=== PATIENT | male | born 1965 | race Caucasian/White ===

== ENCOUNTER 2017-11-30 07:04 | Outpatient (CLI) | payer BC ==
[~2017-11-30] VITALS: Ht 185.4 cm; Wt 129.5 kg
--- NOTE | ~2017-11-30 | HEMODYNAMI ---
PATIENT:STIVEN FRANCISCO MEDICAL RECORD: [id number] : 61 LOCATION:DFLORENCIA ADMISSION DATE: 11/30/17 Generatedon:11/30/20179:34 Patient name: STIVEN FRANCISCO Patient #: [id number] SSN: : 1965 Date of study: 11/30/2017 Page: Of Hemodynamic Procedure Report Patient Data Patient Demographics Procedure consent was obtained First Name: STIVEN Gender: Male Last Name: NOLAN : 1965 [facility] Initial: K Age: 52 year(s) Patient #: [id number] Race: Unknown Additional ID: [id number] Contact details Address: [address] [place] [address] State: [place] City: [place] Zip code: [address] Past Medical History Allergies: No known allergies Admission Admission Data Admission Date: 11/30/2017 Admission Time: 7:04 Lab Results Lab Result Date: 11/30/2017 Lab Result Time: 0:00 Biochemistry Name Units Result Min Max BUN mg/dl 16 --(---*)-- 7 18 Creatinine mg/dl 0.9 --(-*--)-- 0.6 1.3 CBC Name Units Result Min Max Hemoglobin g/dl 15.4 --(-*--)-- 13.5 17.5 Procedure Procedure Types Cath Procedure Diagnostic Procedure [facility] w/Coronaries FFR/IVUS Intra-Coronary IVUS Initial Sedation Charges Moderate Sedation up to 30 minutes PCI Procedure Coronary Stent Coronary Stent Initial Procedure Description Procedure Date Procedure Date: 11/30/2017 Procedure Start Time: 9:00 Procedure End Time: 9:33 Procedure Staff Name Function Kenny Barillas MD Performing Physician Charlotte Jones RT Monitor Gideon Alatorre RN Nurse Gabriela Sanchez RT Scrub Stiven Davidson RN Rolling Up Machine Operator Procedure Data Cath Procedure Fluoroscopy Diagnostic fluoroscopy Total fluoroscopy Time: 4.5 time: 4.5 min min Diagnostic fluoroscopy Total fluoroscopy dose: dose: 1115 mGy 1115 mGy Contrast Material Contrast Material Type Amount (ml) Isovue 300 112 Entry Location Entry Primary Successful Side Size Upsize Upsize Entry Closure Succes sful Closure Location (Fr) 1 (Fr) 2 (Fr) Remarks Device Remarks Femoral Right 5 Fr 6 Fr Exoseal artery Short Estimated blood loss: 10 ml Diagnostic catheters Device Type Used For End Catheter Placement MULTIPACK JL 4.0 5Fr Procedure catheter MULTIPACK 3DRC 5Fr Procedure catheter MULTIPACK JL 4.0 5Fr Left Coronary catheter Angiography MULTIPACK Pigtail 5 Fr Procedure catheter Procedure Complications No complications Procedure Medications Medication Administration Route Dosage 0.9% NaCl I.V. 100 ml/hr Oxygen etCO2 Nasal cannula 2 l/min Heparin Flush Bag added to field 2 bags (1000units/500ml NS) Lidocaine 2% added to field 20 Versed I.V. 2 mg Fentanyl I.V. 100 mcg Versed I.V. 1 mg Heparin Bolus I.V. 26554 units Versed I.V. 1 mg Brilinta P.O. 180 mg Hemodynamics Rest HGB: 15.4 (g/dl) Heart Rate: 80 (bpm) Pressure Samples Time Site Value (mmHg) Purpose Heart Use Rate(bpm) 9:11 LV 138/-3,18 Snapshot 90 9:11 AO 142/81(107) Pullback 91 9:11 LV 166/8,42 Pullback 91 Gradients Valve Time Site 1 Site 2 Mean SEP/DFP Peak To Heart Use (mmHg) (sec/min) Peak Rate (mmHg) (bpm) Aortic 9:11 LV AO 13 16 24 91 166/8,42 142/81(107) Calculations Valve P-P Mean Valve Index Valve Source Name Gradient Area Flow (cm2) Aortic 24 13 24 13 Snapshots Pre Cath Intra NCS Post Cath Vital Signs Time Heart Resp SPO2 etCO2 NIBP (mmHg) Rhythm Pain Sedation Rate (ipm) (%) (mmHg) Status Level (bpm) 8:46:43 75 24 96 0 144/84(111) NSR 0 (11) 10(A) , No pain 8:51:26 81 19 96 34 132/89(104) NSR 0 (11) 10(A) , No pain 8:56:06 79 15 96 40.8 141/83(116) NSR 0 (11) 10(A) , No pain 9:00:49 82 17 97 25.7 143/89(113) NSR 0 (11) 9(A) , No pain 9:05:30 86 17 97 9 153/96(115) NSR 0 (11) 9(A) , No pain 9:10:14 88 19 97 42.3 141/84(115) NSR 0 (11) 9(A) , No pain 9:14:53 87 18 98 46.1 132/86(107) NSR 0 (11) 9(A) , No pain 9:19:34 87 21 98 37.8 134/85(112) NSR 0 (11) 9(A) , No pain 9:24:14 82 19 98 43.8 131/83(106) NSR 0 (11) 10(A) , No pain 9:28:53 77 19 98 42.3 146/95(115) NSR 0 (11) 10(A) , No pain Medications Time Medication Route Dose Verified Delivered Reason Notes Effectiveness by by 8:50:54 0.9% NaCl I.V. 100 Gideon Gideon Per physician ml/hr Landry Alatorre RN RN 8:51:03 Oxygen etCO2 2 Gideon Gideon Per physician Nasal l/min Landry Alatorre cannula RN RN 8:51:13 Heparin Flush added 2 bags Gideon Gideon used for Bag to Landry Alatorre procedure (1000units/500ml RN RN NS) 8:51:23 Lidocaine 2% added 20ml Gideon Gideon for local to vial Landry Alatorre anesthetic RN RN 8:55:11 Versed I.V. 2 mg Gideon Gideon for sedation Landry Alatorre RN RN 8:55:18 Fentanyl I.V. 100 Gideon Gideon for sedation mcg Landry Alatorre RN RN 8:59:31 Versed I.V. 1 mg Gideon Gideon for sedation Landry Alatorre RN RN 9:16:01 Heparin Bolus I.V. 10,000 Gideon Gideon for units Landry Alatorre anticoagulation RN RN 9:16:09 Versed I.V. 1 mg Gideon Gideon for sedation Landry Alatorre RN RN 9:29:20 Brilinta P.O. 180 mg Gideon Gideon for Lorgonzalo Alatorre antiplatelet RN RN therapy Procedure Log Time Note 8:39:54 Stiven Davidson RN sent for patient. Start room use. 8:39:55 Time tracking: Regular hours (M-F 7:00 - 5:00) 8:42:32 Patient received from Pre/Post Procedure Room to CCL 1 Alert and oriented. Tansferred to table in Supine position. 8:42:33 Warm blankets applied, and delphine hugger turned on for patient comfort. 8:42:33 Correct patient and procedure confirmed by team. 8:42:34 Signed procedure consent form obtained from patient. 8:42:35 ECG and BP/O2 sat monitors applied to patient. 8:42:43 H&P Date Dictated: 11/27/2017 Within 30 days and on chart., H&P Addendum completed by physician on day of procedure. (MUST COMPLETE FOR ALL OUTPATIENTS). 8:45:49 Vital chart was started 8:45:53 Full Disclosure recording started 8:50:54 0.9% NaCl 100 ml/hr I.V. was administered by Gideon Alatorre RN; Per physician; 8:51:03 Oxygen 2 l/min etCO2 Nasal cannula was administered by Gideon Alatorre RN; Per physician; 8:51:13 Heparin Flush Bag (1000units/500ml NS) 2 bags added to field was administered by Gideon Alatorre RN; used for procedure; 8:51:23 Lidocaine 2% 20ml vial added to field was administered by Gideon Alatorre RN; for local anesthetic; 8:51:41 Baseline sample Acquired. 8:51:48 Rhythm: sinus rhythm 8:51:51 Pre-procedure instructions explained to patient. 8:51:52 Pre-op teaching completed and patient verbalized understanding. 8:51:54 Family in patients room. 8:51:55 Patient NPO since Midnight. 8:52:07 Patient allergic to No known allergies 8:52:20 Is the patient allergic to Iodine/contrast media? No. 8:52:22 Is patient on blood thinner?No 8:52:24 Patient diabetic? No. 8:52:27 Previous problem with sedation/anesthesia? No ? 8:52:28 Snore? Yes 8:52:29 Sleep apnea? No 8:52:31 Deviated septum? No 8:52:32 Opens mouth fully? Yes 8:52:32 Sticks out tongue? Yes 8:52:35 Airway obstruction? No ? 8:52:37 Dentures? No ? 8:52:46 Pre procedure: right dorsailis pedis pulse 2+ Normal; easily identifiable; not easily obliterated 8:52:49 Patient pain scale 0/10 ?. 8:52:53 IV patent on arrival in left hand with 0.9% NaCl at [facility]. 8:53:19 Lab Result : Creatinine 0.9 mg/dl 8:53:19 Lab Result : BUN 16 mg/dl 8:53:19 Lab Result : Hemoglobin 15.4 g/dl 8:53:22 Lab results completed and on chart. 8:53:27 Right groin area was prepped with chlora-prep and draped in sterile fashion 8:53:28 Alarms reviewed by R. N. 8:53:28 Sharps counted by scrub and verified by R.N. 8:53:34 Use device set Femoral Dx 8:53:35 ACIST Syringe (46930) opened to sterile field. 8:53:36 Bag Decanter (2002S) opened to sterile field. 8:53:37 ACIST Hand Control (48798) opened to sterile field. 8:53:38 ACIST Manifold (52967) opened to sterile field. 8:53:38 Tegaderm 4 x 4 (1626W) opened to sterile field. 8:53:40 Medline Cath Pack ([id number]) opened to sterile field. 8:53:41 DIAGNOSTIC WIRE .035 260cm J wire (062817) opened to sterile field. 8:53:42 DIAGNOSTIC Multipack 5Fr catheter set (FI2173) opened to sterile field. 8:53:43 SHEATH Prelude 5Fr 0.035 (SYY-9U-31-035) opened to sterile field. 8:54:31 --------ALL STOP TIME OUT------ 8:54:31 Final Timeout: patient, procedure, and site verified with staff and physician. All members of the team are in agreement. 8:54:33 Right groin site verified by team. 8:54:36 Physical assessment completed. ASA score P 2 - A patient with mild systemic disease as per Kenny Barillas MD. 8:54:39 Sedation plan: IV Moderate Sedation Medication:Versed, Fentanyl 8:55:11 Versed 2 mg I.V. was administered by Gideon Alatorre RN; for sedation; 8:55:18 Fentanyl 100 mcg I.V. was administered by Gideon Alatorre RN; for sedation; 8:57:10 Zero performed for pressure channel P1 8:57:13 Zero performed for pressure channel P1 8:59:19 Zero performed for pressure channel P1 8:59:31 Versed 1 mg I.V. was administered by Gideon Alatorre RN; for sedation; 8:59:52 Procedure started. 9:00:05 Local anesthetic to right femoral artery with Lidocaine 2% by Kenny Barillas MD.INITIAL ACCESS ONLY 9:02:21 A 5 Fr sheath was inserted into the Right Femoral artery 9:02:48 A MULTIPACK JL 4.0 5Fr catheter was advanced over the wire and used for Procedure. 9:04:35 LCA angiography performed. 9:04:37 Catheter exchanged over wire. 9:05:09 A MULTIPACK 3DRC 5Fr catheter was advanced over the wire and used for Procedure. 9:06:40 RCA angiography performed. 9:08:09 Catheter exchanged over wire. 9:08:48 A MULTIPACK JL 4.0 5Fr catheter was advanced over the wire and used for Left Coronary Angiography. 9:09:57 LCA angiography performed. 9:10:01 Catheter exchanged over wire. 9:10:31 A MULTIPACK Pigtail 5 Fr catheter was advanced over the wire and used for Procedure. 9:11:00 LV gram done using GUPTA 9:11:02 Injector settings: Ml/sec: 10, Volume: 20, 9:11:22 LV hemodynamics recorded. 9:11:32 EF : 60 % 9:11:46 Catheter exchanged over wire. 9:12:09 SHEATH 6FR [place] (DXF723) opened to sterile field. 9:12:39 INFLATOR Merit BasixCompak (MC4533) opened to sterile field. 9:12:40 TUBING High Pressure Extension Tubing (Eran) (DX1828Y) opened to sterile field. 9:12:40 BMW 300cm Straight [place] 2 wire (2859156) opened to sterile field. 9:12:56 GUIDE 6FR EBU 3.75 catheter ([id number]) opened to sterile field. 9:13:04 Sheath upsized to a 6 Fr Short. 9:13:49 [place] IVUS Catheter (03271D) opened to sterile field. 9:14:18 6 Fr EBU 3.75 guide catheter was inserted over the wire 9:16:01 Heparin Bolus 10,000 units I.V. was administered by Gideon Alatrore RN; for anticoagulation; 9:16:09 Versed 1 mg I.V. was administered by Gideon Alatorre RN; for sedation; 9:16:21 BMW 300 wire advanced. 9:16:43 Wire advanced across lesion. 9:17:48 IVUS catheter advanced over wire. 9:20:50 IVUS pass to Circ lesion performed. 9:20:51 IVUS catheter removed over wire. 9:25:49 Place stent Inflation Number: 1 A TOM OTW 3.5 x 22 stent ([id number]) was prepped and advanced across the Prox CX. The stent was deployed at 14 THEODORE for 0:10 (min:sec). 9:26:46 Wire removed. 9:26:46 Guide catheter removed. 9:26:52 EXOSEAL 6Fr (EX600) opened to sterile field. 9:27:59 Sheath removed intact; hemostasis achieved with Exoseal to the Right Femoral artery. 9:28:01 Procedure ended.(Physican Out) 9:28:31 Fluoroscopy time 04.50 minutes. 9:28:37 Fluoroscopy dose: 1115 mGy 9:28:37 Flurop Dose total: 1115 9:28:51 Contrast amount:Isovue 300 112ml. 9:28:59 Post-op/insertion site Right Femoral artery dressed using a 4 x 4 and Tegaderm. 9:29:04 Post right femoral artery:stable, soft, clean and dry 9:29:07 Post-procedure physical assessment completed. ASA score P 2 - A patient with mild systemic disease as per Kneny Barillas MD. 9:29:10 Post procedure rhythm: sinus rhythm 9:29:13 Estimated blood loss: 10 ml 9:29:20 Brilinta 180 mg P.O. was administered by Gideon Alatorre RN; for antiplatelet therapy; 9:29:33 Post procedure instruction explained to patient.Patient verbalizes understanding. 9:29:34 Patient needs reinforcement of post procedure teaching. 9:30:03 Procedure type changed to Cath procedure, Diagnostic procedure, LHC, LHC w/Coronaries, FFR/IVUS, Intra-Coronary IVUS Initial, Sedation Charges, Moderate Sedation up to 30 minutes, PCI procedure, Coronary Stent, Coronary Stent Initial 9:30:45 Procedure and supply charges have been captured, reviewed, submitted and are correct. 9:30:47 Procedure Complication : No complications 9:30:49 Vital chart was stopped 9:30:50 See physician's report for complete and final results. 9:30:52 Report given to Pre/Post Procedure Room. 9:30:54 Patient transfered to Pre/Post Procedure Room with Bed. 9:32:59 Procedure ended. 9:32:59 Full Disclosure recording stopped 9:33:08 End room use (Document Last) Intervention Summary Intervention Notes Time ActionType Lesion and Equipment Action# Pressure Duration Attributes Used 9:25:49 Place stent Prox CX TOM OTW 3.5 1 14 00:10 x 22 stent ([id number]) Device Usage Item Name Manufacture Quantity Catalog Number Hospital Part Current Minimal Lot# / Charge Number Stock Stock Serial# Code ACIST Syringe Acist 1 11143 082510 484996 025262 20 (39712) Medical Systems [employer] Bag Decanter Microtek 1 2001S 618207 15693 929497 5 (2001S) Medical Inc. ACIST Hand Acist 1 73591 476087 504758 201770 5 Control (29871) Medical Systems Inc ACIST Manifold Acist 1 87767 229984 198180 512020 5 (98738) Medical Systems Inc Tegaderm 4 x 4 3M 1 1626W 670018 945303 333736 5 (1626W) Medline Cath Cardinal 1 [id number] 996442 62306 820171 5 Pack Health ([id number]) DIAGNOSTIC WIRE [place] 1 322688 686189 777975 164155 30 .035 260cm J wire (949000) DIAGNOSTIC Cardinal 1 WM2031 314589 21748 749327 30 Multipack 5Fr Health catheter set (IJ0100) SHEATH Prelude Merit 1 EYO-0N-72-035 569916 844565 953331 5 5Fr 0.035 Medical (MOC-3W-41-035) MULTIPACK JL Cardinal 1 782863 5 4.0 5Fr Health catheter MULTIPACK 3DRC Cardinal 1 334571 5 5Fr catheter Health MULTIPACK Cardinal 1 376375 5 Pigtail 5 Fr Health catheter SHEATH 6FR Terumo 1 OZL884 652884 902438 849321 40 [place] (GDE812) INFLATOR Merit Merit 1 JK3972 955361 977537 831320 15 BasixCompak Medical (EC3553) TUBING High Merit 1 [id number] 947251 49340 132456 10 Pressure Medical Extension Tubing (Barillas) (GM3277I) BMW 300cm Grace 1 6988749 198179 436972 507575 5 Straight Vascular [place] 2 wire (3734039) GUIDE 6FR EBU Medtronic 1 [id number] 826684 33105 758324 1 3.75 catheter ([id number]) Fairview [place] 1 29340J 684477 663622 117875 8 [place] IVUS Catheter (00124V) TOM OTW 3.5 x Medtronic 1 [id number] 319040 2559255 516220 5 [id number] 22 stent ([id number]) EXOSEAL 6Fr Cardinal 1 EX600 397093 272103 073347 10 (EX600) Health Signature Audit [place] Stage Time Signature Unsigned Intra-Procedure 11/30/2017 Charlotte Jones 9:34:25 AM RT(R) Signatures Monitor : Charlotte Jones Signature : RT Date : Time : [place] [id number] [place] [address]
[2017-11-30 06:44] VITALS: BP 124/90; Ht 185.4 cm; Wt 129.5 kg
[2017-11-30 06:56] LABS: BASOPHILS 0.5 % (0-2); EOSINOPHILS 4.6 % (0-7); HEMATOCRIT 43.3 % (42.0-54.0); HEMOGLOBIN 15.4 g/dL (13.5-17.5); IMMATURE GRANULOCYTES 0.7 % (0-5); LYMPHOCYTES 30.4 % (15-50); MCH 30.1 pg (26.0-34.0); MCHC 35.6 g/dL (31.0-37.0); MCV 84.6 fL (80.0-100.0); MEAN PLATELET VOLUME 10.1 fL (7.4-10.4); MONOCYTES 6.8 % (2-11); PLATELET COUNT 150 10x3/uL (130-400); RBC 5.12 10x6/uL (4.20-6.10); RDW 12.2 % (11.5-14.5); WBC 5.9 10x3/uL (4.8-10.8)
[~2017-11-30 07:04] MED LIST: ASPIRIN EC81 M1 PO; CELEXA20 MG PO; CLARITIN 10 MG10 MG PO; CRESTOR10 MG PO; FOLBIC RF TABL1 EACH PO; NITROSTAT0.4 MG SL
[2017-11-30 07:12] LABS: CALC OSMOLALITY 283 mosm/kg (275-300); CALCIUM 8.8 mg/dL (8.5-10.1); CHLORIDE - SERUM 104 mmol/L (98-107); CREATININE - SERUM 0.9 mg/dL (0.6-1.3); POTASSIUM - SERUM 4.4 mmol/L (3.5-5.1); SODIUM 139 mmol/L (136-145); UREA NITROGEN 16 mg/dL (7-18); eGFR NON AFRICAN AMERICAN > 90 mL/min (90-120)
[2017-11-30 07:13] LABS: GLUCOSE 196 mg/dL (74-106)
== END 2017-11-30 13:58 | disposition home or self-care (01) ==
LOC: D.CATH 07:04
PROVIDERS: Internal Medicine Cardiovascular Disease
DX: I25.119 Atherosclerotic heart disease of native coronary artery with unspecified angina pectoris (principal); Z95.5 Presence of coronary angioplasty implant and graft; Z01.812 Encounter for preprocedural laboratory examination

== ENCOUNTER → 2018-04-09 12:33 | Outpatient (CLI) | payer BC ==
[2017-11-30 06:44] VITALS: BMI 37.6
== END | disposition home or self-care (01) ==
LOC: D.US 12:33
DX: M79.605 Pain in left leg (principal)

== ENCOUNTER → 2018-04-25 13:25 | Outpatient (CLI) | payer BC ==
[2017-11-30 06:44] VITALS: BMI 37.6
== END | disposition home or self-care (01) ==
LOC: D.MRI 13:25
DX: M25.562 Pain in left knee (principal)

== ENCOUNTER 2018-05-17 08:40 | Day surgery (SDC) | payer BC ==
[2018-05-16 10:32] LABS: HEMATOCRIT 40.9 % (42.0-54.0); HEMOGLOBIN 14.3 g/dL (13.5-17.5); MCH 29.2 pg (26.0-34.0); MCV 83.6 fL (80.0-100.0); MEAN PLATELET VOLUME 9.5 fL (7.4-10.4); RBC 4.89 10x6/uL (4.20-6.10); RDW 12.5 % (11.5-14.5); WBC 5.8 10x3/uL (4.8-10.8)
[2018-05-16 13:06] LABS: CALC OSMOLALITY 281 mosm/kg (275-300); CALCIUM 8.6 mg/dL (8.5-10.1); CARBON DIOXIDE 26.7 mmol/L (21.0-32.0); CHLORIDE - SERUM 103 mmol/L (98-107); CREATININE - SERUM 0.9 mg/dL (0.6-1.3); SODIUM 141 mmol/L (136-145); UREA NITROGEN 14 mg/dL (7-18); eGFR NON AFRICAN AMERICAN > 90 mL/min (90-120)
[2018-05-16 13:07] LABS: GLUCOSE 90 mg/dL (74-106)
[~2018-05-17] VITALS: Ht 185.4 cm; Wt 124.7 kg
[~2018-05-17 08:40] MED LIST changes: +METFORMIN HCL500 M1 PO; +NORCO 10-325 TA1 TAB PO
[2018-05-17 09:08] VITALS: BP 106/71; Ht 185.4 cm; Wt 124.7 kg
[2018-05-17] MEDS ORDERED: DILAUDID2 MG PO (11:30)
--- NOTE | 2018-05-17 16:40 | NUR ---
1346 IV DISCONTINUED. CATHETER INTACT. PRESSURE HELD UNTIL BLEEDING STOPPED. COTTON BALL AND BANDAID APPLIED. 1406 PT WAS ABLE TO DRESS SELF WITHOUT DIFFICULTY. IN WHEELCHAIR AND READY TO BE TAKEN TO PERSONAL VEHICLE FOR DISCHARGE TO HOME.
--- NOTE | 2018-05-18 11:02 | OP ---
PATIENT NAME: STIVEN FRANCISCO MEDICAL RECORD: [id number] :61 LOCATION:D.OPS ADMISSION DATE: SURGEON: CONRAD TREVINO MD DATE OF OPERATION: 05/17/2018 PREOPERATIVE DIAGNOSIS: Medial meniscus tear of the left knee. POSTOPERATIVE DIAGNOSIS: Medial meniscus tear of the left knee. PROCEDURE: Arthroscopic partial medial meniscectomy of the left knee. SURGEON: Conrad Trevino MD ANESTHESIA: General. INTRAOPERATIVE COMPLICATIONS: None. 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 OPERATIVE SUMMARY IN DETAIL: After obtaining the appropriate preoperative orthopedic surgery consent as well as anesthetic consultation, evaluation, and clearance, the patient was brought to the operating room and placed on the operating table in supine position. After adequate general laryngeal mask airway was administered, tourniquet was placed in the proximal aspect of left lower extremity. Left lower extremity was prepped and draped in routine sterile fashion. The leg was elevated and exsanguinated, tourniquet inflated to 350 mmHg. Routine inferolateral portal was established followed by superomedial portal and inferomedial portal. Diagnostic arthroscopy did reveal the above findings. Attention was turned to the medial meniscus. Combination of meniscotomes as well as a full radius resector was utilized to debride the meniscus back to stable meniscal elements. The patient had good residual and the meniscal tear was essentially from the medial half to the posterior aspect of the meniscus; however, a cm lateral to the root. Having debrided this, the knee was insufflated with 30 cc of 0.25% Marcaine with epinephrine and 80 mg of Depo-Medrol. Arthroscopy portals were closed in routine interrupted fashion with 4-0 Prolene. Sterile dressings were applied. Tourniquet was deflated. The patient was awakened and taken to the recovery room in stable condition. All final needle and sponge counts were correct. TRANSINT:[id number] Voice Confirmation ID: [id number] DOCUMENT ID: [id number] CONRAD TREVINO MD at 1102 CC: [id number] DICTATION DATE: 05/17/18 1133 CLOTHING TRADES WORKERS: 05/17/18 1418 [facility] [place] 05/17/18 [facility] [address] [place] [address]
== END 2018-05-17 14:06 | disposition home or self-care (01) ==
LOC: D.OPS 08:40 → D.PAN 13:30 → D.OPS 13:30
PROVIDERS: Anesthesiology
DX: S83.232A Complex tear of medial meniscus, current injury, left knee, initial encounter (principal); Z01.812 Encounter for preprocedural laboratory examination

== ENCOUNTER 2019-06-19 00:10 | Observation (INO) | payer BC ==
[~2019-06-19] VITALS: Ht 185.4 cm; Wt 128.2 kg
--- NOTE | ~2019-06-19 | DS ---
PATIENT:STIVEN FRANCISCO :61 MEDICAL RECORD: [id number] DISCHARGE SUMMARY ADMISSION DATE: 06/19/19 DISCHARGE DATE: 06/19/19 DATE OF DISCHARGE: 1. Angina. 2. Coronary artery disease. 3. Previous multivessel stents. 4. Hyperlipidemia. Mr. Francisco presents with an episode of angina, relieved with one sublingual nitro. No further episodes of pain overnight. Troponin was normal. EKG is with no changes. Discharged home. Risk stratify with stress testing as an outpatient. TRANSINT:[id number] Voice Confirmation ID: [id number] DOCUMENT ID: [id number] YEE JUAN MD CC: [id number] DICTATION DATE: 06/19/19929 DEALER DEVELOPMENT MANAGER: 06/20/19 0703 DEP CLI 06/19/19 [id number] [place] [address]
--- NOTE | ~2019-06-19 | HP ---
PATIENT: STIVEN BARNES MEDICAL RECORD: [id number] ACCOUNT: [id number] LOCATION:[facility] : 61 ADMISSION DATE: 06/19/19 PCP: MARQUES BIRCH MD HISTORY AND PHYSICAL EXAMINATION ADMITTING DIAGNOSES: 1. Angina. 2. Coronary artery disease. 3. Previous multivessel percutaneous transluminal coronary angioplasty stent. 4. Hyperlipidemia. HISTORY OF PRESENT ILLNESS: Mr. Barnes presents with an episode of chest discomfort resolved with one sublingual nitro. He presents to the Emergency Room. He has no EKG changes. He has had no further episodes of chest discomfort. PHYSICAL EXAMINATION: CONSTITUTIONAL/GENERAL APPEARANCE: Well nourished, well developed, appears stated age. EYES: Lids and conjunctivae noninjected. No discharge. No pallor. ENT: Lips within normal limit. No cyanosis. No pallor. NECK: Carotid arteries, bilateral normal upstroke. No bruits. No thrills. No jugular venous pressure or distention. CERVICAL LYMPH NODES: Nontender. Nonenlarged. THYROID: Not enlarged. No nodules. CARDIOVASCULAR: Precordial exam, nondisplaced. No heaves or pericardial thrills. Rate and rhythm, regular. Heart sounds, normal S1, normal S2. No S3, no gallop, no rub. Systolic murmur, not heard. Diastolic murmur, not heard. RESPIRATORY: Respiratory effort, unlabored. Normal curvature. No thoracic deformity. No chest wall tenderness. Percussion, resonant. Auscultation, clear. No wheezes, no rales, no rhonchi. ABDOMEN: Soft, nondistended, nontender. No abdominal pain, no vomiting and normal appetite. MUSCULOSKELETAL: No joint tenderness, normal gait, normal tone. SKIN: Warm and dry. OVERALL IMPRESSION: Anginal symptomatology in a patient with multivessel coronary artery disease. We will observe overnight. If he has no further episodes of chest discomfort, we will risk stratify with stress testing Cardiolite imaging. TRANSINT:[id number] Voice Confirmation ID: [id number] DOCUMENT ID: [id number] YEE JUAN MD CC: [id number] DICTATION DATE: 06/19/19928 MILK RECEIVER TANK TRUCK: 06/19/19 1114 DEP CLI 06/19/19 [facility] [address] [place] [address]
[~2019-06-19 00:10] MED LIST changes: +DILAUDID2 MG PO
[2019-06-19 00:31] LABS: BASOPHILS 0.6 % (0-2); EOSINOPHILS 3.6 % (0-7); HEMATOCRIT 41.1 % (42.0-54.0); HEMOGLOBIN 14.3 g/dL (13.5-17.5); IMMATURE GRANULOCYTES 0.3 % (0-5); LYMPHOCYTES 37.4 % (15-50); MCH 29.8 pg (26.0-34.0); MCHC 34.8 g/dL (31.0-37.0); MCV 85.6 fL (80.0-100.0); MONOCYTES 8.8 % (2-11); NEUTROPHILS 49.3 % (40-80); RDW 12.6 % (11.5-14.5); WBC 7.2 10x3/uL (4.8-10.8)
[2019-06-19 00:34] LABS: PLATELET COUNT 186 10x3/uL (130-400)
[2019-06-19 00:45] LABS: CALC OSMOLALITY 286 mosm/kg (275-300); CARBON DIOXIDE 26.1 mmol/L (21.0-32.0); CHLORIDE - SERUM 103 mmol/L (98-107); CREATININE - SERUM 0.9 mg/dL (0.6-1.3); GLUCOSE 256 mg/dL (74-106); POTASSIUM - SERUM 4.6 mmol/L (3.5-5.1); SODIUM 138 mmol/L (136-145); UREA NITROGEN 19 mg/dL (7-18); eGFR NON AFRICAN AMERICAN > 90 mL/min (90-120)
[2019-06-19 00:47] LABS: APTT 28.3 SECONDS (22.8-39.4); INR 0.91 (0.85-1.17); PROTIME 12.2 SECONDS (11.6-15.0)
[2019-06-19 01:01] LABS: ALBUMIN 3.4 g/dL (3.4-5.0); ALKALINE PHOSPHATASE 128 U/L (46-116); ALT (SGPT) 41 U/L (10-68); BILIRUBIN - TOTAL 0.47 mg/dL (0.2-1.3); CKMB 1.1 U/L (0.0-3.6); CREATINE KINASE 147 UL (21-232); PROTEIN - SERUM 7.4 g/dL (6.4-8.2); TROPONIN-I < 0.017 ng/mL (0.000-0.060)
--- NOTE | 2019-06-19 02:25 | NUR ---
SWAPNIL VIA WC FROM ER TO 2121 CP AT A 1 NOW IV ESTABLISHED NS AT 100 LCTA SAFTY CHECK BED LOW AND LOCKED COMFORT PROVIDED FOR AND PT CALL LIGHT GIVEN TO PT WILL KEEP NPO
--- NOTE | 2019-06-19 02:30 | NUR ---
PT LEFT ED DEPARTMENT AT 0230
[2019-06-19 05:05] VITALS: BP 125/77
[2019-06-19 06:16] LABS: BASOPHILS 0.5 % (0-2); EOSINOPHILS 5.2 % (0-7); HEMATOCRIT 40.6 % (42.0-54.0); IMMATURE GRANULOCYTES 0.3 % (0-5); LYMPHOCYTES 36.6 % (15-50); MCH 29.6 pg (26.0-34.0); MCHC 34.5 g/dL (31.0-37.0); MCV 85.8 fL (80.0-100.0); MEAN PLATELET VOLUME 9.7 fL (7.4-10.4); MONOCYTES 11.5 % (2-11); NEUTROPHILS 45.9 % (40-80); RBC 4.73 10x6/uL (4.20-6.10); RDW 12.7 % (11.5-14.5); WBC 6.2 10x3/uL (4.8-10.8)
[2019-06-19 06:19] LABS: PLATELET COUNT 141 10x3/uL (130-400)
[2019-06-19 06:50] LABS: ALBUMIN 3.2 g/dL (3.4-5.0); ALKALINE PHOSPHATASE 99 U/L (46-116); ALT (SGPT) 45 U/L (10-68); BILIRUBIN - TOTAL 0.48 mg/dL (0.2-1.3); CALCIUM 7.8 mg/dL (8.5-10.1); CARBON DIOXIDE 28.8 mmol/L (21.0-32.0); CHLORIDE - SERUM 105 mmol/L (98-107); CREATINE KINASE 72 UL (21-232); CREATININE - SERUM 0.8 mg/dL (0.6-1.3); PROTEIN - SERUM 6.8 g/dL (6.4-8.2); SODIUM 140 mmol/L (136-145); UREA NITROGEN 18 mg/dL (7-18); eGFR NON AFRICAN AMERICAN > 90 mL/min (90-120)
[2019-06-19 06:51] LABS: CALC OSMOLALITY 285 mosm/kg (275-300); GLUCOSE 182 mg/dL (74-106); POTASSIUM - SERUM 3.7 mmol/L (3.5-5.1); TROPONIN-I < 0.017 ng/mL (0.000-0.060)
--- NOTE | 2019-06-19 07:20 | NUR ---
ASSESSMENT DONE. DENIES NEEDS
[2019-06-19 07:33] VITALS: Ht 185.4 cm; Wt 128.2 kg
[2019-06-19 09:18] VITALS: BP 125/71
--- NOTE | 2019-06-19 09:43 | NUR ---
DC GIVEN TO PT
--- NOTE | 2019-06-19 09:46 | NUR ---
I have reviewed this patient and I concur with the Shift Assessment completed by the Licensed Practical Nurse today this shift.
--- NOTE | 2019-06-19 09:53 | NUR ---
DC HOME PER PERSONAL CAR
== END 2019-06-19 09:54 | disposition home or self-care (01) ==
LOC: D.OPS 00:10 → D.M2 00:10 → D.ER 00:10 → OBSVTIME 01:56 → D.M2 01:56 → D.OPS 01:56 → EDSTATUS 02:13 → D.M2 09:54 → D.OPS 09:54 → EDSTATUS 06-20 14:08
PROVIDERS: Family Medicine; ADMIT Internal Medicine Interventional Cardiology; ATTEND Internal Medicine Interventional Cardiology
DX: I25.119 Atherosclerotic heart disease of native coronary artery with unspecified angina pectoris (principal); E78.5 Hyperlipidemia, unspecified

== ENCOUNTER → 2019-06-27 11:40 | Outpatient (CLI) | payer BC ==
[2019-06-19 07:33] VITALS: BMI 37.0
--- NOTE | ~2019-06-27 | ST ---
PATIENT:STIVEN FRANCISCO MEDICAL RECORD: [id number] SEX: M LOCATION:[facility] ORDER #: ADMISSION DATE: 06/27/19 AGE OF PATIENT: 54 REFERRING PHYSICIAN: INTERPRETING PHYSICIAN: YEE JUAN MD DATE OF SERVICE: 06/27/2019 PROCEDURE: Nuclear stress test. INDICATION: Angina, coronary artery disease, and hyperlipidemia. He was exercised on standard Chip protocol for 7 minutes 45 seconds achieving 85% max target heart rate response with 33 mCi of sestamibi injected at peak stress, 11 mCi used previously for rest images. FINDINGS: Gated SPECT reveals a preserved ejection fraction at 74% with good wall motion and thickening and brightening throughout all segments. SPECT imaging Cardiolite was used as myocardial perfusion agent. There are reversible changes anteriorly, inferiorly, as well as laterally. The reversibility anteriorly is basal, mid, apical anterior segments as well as the apex itself. This is moderate with a large amount of myocardium involved. Inferiorly, it is basal, mid, apical inferior segments. This is moderate to severe. Lateral segments are basal, mid, apical, lateral segments with mild reversibility altogether. There is a very large amount of myocardium involved. OVERALL IMPRESSION: This is high risk abnormal nuclear stress test, large areas of reversibility anteriorly, inferiorly, and laterally suggestive of multivessel coronary artery disease. TRANSINT:[id number] Voice Confirmation ID: [id number] DOCUMENT ID: [id number] YEE JUAN MD CC: JESSE CARDOZO [id number] DICTATION DATE: 06/28/19 1523 WHARF HAND: 06/29/19 0321 DEP CLI 06/27/19 [place] [id number] [place] [id number]
== END | disposition home or self-care (01) ==
LOC: D.HCCARDIO 11:40
PROVIDERS: ATTEND Internal Medicine Interventional Cardiology
DX: I25.10 Atherosclerotic heart disease of native coronary artery without angina pectoris (principal)

== ENCOUNTER 2020-01-20 09:33 | Observation (INO) | payer BC ==
[~2020-01-20] VITALS: Ht 185.4 cm; Wt 122.9 kg
--- NOTE | ~2020-01-20 | HEMODYNAMI ---
PATIENT:STIVEN FRANCISCO MEDICAL RECORD: [id number] : 61 [id number] ADMISSION DATE: 01/20/20 Generatedon:01/21/202015:41 Patient name: STIVEN FRANCISCO Patient #: [id number] SSN: [id number] : 1965 Date of study: 01/21/2020 Page: Of Hemodynamic Procedure Report Patient Data Patient Demographics Procedure consent was obtained First Name: STIVEN Gender: Male Last Name: NOLAN : 1965 Middle Initial: KILEY Age: 54 year(s) Patient #: [id number] Race: SSN: [id number] Additional ID: [id number] Contact details Address: [address] [place] [address] State: [place] City: [place] Zip code: [address] Past Medical History History of disease Date Diagnosis Comments CAD Allergies: No known allergies Admission Admission Data Admission Date: 01/20/2020 Admission Time: 15:57 Arrival Date: 01/21/2020 Arrival Time: 0:00 Admit Source: Other Insurance Payor: Private Room #: D.2116 health insurance Height (in.): 72.83 BSA: 2.44 (m2) Height (cm.): 185 BMI: 35.65 (kg/m2) Weight (lbs.): 268.97 Weight (kg.): 122 Lab Results Lab Result Date: 01/21/2020 Lab Result Time: 0:00 Biochemistry Name Units Result Min Max BUN mg/dl 16 --(---*)-- 7 18 Creatinine mg/dl 0.9 --(-*--)-- 0.6 1.3 eGFR ml/min 90 --(*---)-- 90 120 NONAFRICAN Troponin l ng/ml 0.118 --(----)-* 0 0.06 CBC Name Units Result Min Max Hemoglobin g/dl 14.9 --(-*--)-- 13.5 17.5 Procedure Procedure Types Cath Procedure Diagnostic Procedure [facility] w/Coronaries Sedation Charges Moderate Sedation up to 30 minutes PCI Procedure Coronary Stent Coronary Stent Initial Hemochron ACT Test Procedure Description Procedure Date Procedure Date: 01/21/2020 Procedure Start Time: 15:12 Procedure End Time: 15:36 Procedure Staff Name Function Enrique Sevilla MD Performing Physician Mariia Xie RT Monitor Anushka Carroll RN Nurse Nancy Ellington RT Scrub Vivi Isaacs RT Monitor Indication Chest pain Procedure Data Cath Procedure Fluoroscopy Diagnostic fluoroscopy Total fluoroscopy Time: 4.9 time: 4.9 min min Diagnostic fluoroscopy Total fluoroscopy dose: dose: 1076 mGy 1076 mGy Contrast Material Contrast Material Type Amount (ml) Isovue 300 94 Entry Location Entry Primary Successful Side Size Upsize Upsize Entry Closure Succes sful Closure Location (Fr) 1 (Fr) 2 (Fr) Remarks Device Remarks Femoral Right 5 Fr 6 Fr Exoseal artery Short Estimated blood loss: 10 ml Diagnostic catheters Device Type Used For End Catheter Placement MULTIPACK JL 4.0 5Fr Left Coronary catheter Angiography MULTIPACK 3DRC 5Fr Right Coronary catheter Angiography MULTIPACK Pigtail 5 Fr LV Angiography catheter Procedure Complications No complications Procedure Medications Medication Administration Route Dosage Oxygen etCO2 Nasal cannula 2 l/min Lidocaine 2% added to field 20 Heparin Flush Bag added to field 2 bags (1000units/500ml NS) 0.9% NaCl I.V. 100 ml/hr Versed I.V. 2 mg Fentanyl I.V. 50 mcg Versed I.V. 2 mg Fentanyl I.V. 50 mcg Heparin Bolus I.V. 5000 units Integrilin (Bolus I.V. 11.3 ml 2mg/ml) Plavix P.O. 600 mg Hemodynamics Rest BSA: 2.44 (m2) HGB: 14.9 (g/dl) O2 Consumption: Estimated: 292.36 (ml/min) O2 Co nsumption indexed: Estimated:119.82 (ml/min/m) Heart Rate: 74 (bpm) Pressure Samples Time Site Value (mmHg) Purpose Heart Use Rate(bpm) 15:18 LV 129/17,19 Snapshot 79 15:18 AO 116/85(101) Pullback 79 Gradients Valve Time Site Site 2 Mean SEP/DFP Peak To Heart Use 1 (mmHg) (sec/min) Peak Rate (mmHg) (bpm) Aortic 15:18 LV AO 2 6 79 116/85(101) Calculations Valve P-P Mean Valve Index Valve Source Name Gradient Area Flow (cm2) Aortic 2 2 Snapshots Pre Cath Intra NCS Post Cath Vital Signs Time Heart Resp SPO2 etCO2 NIBP (mmHg) Rhythm Pain Sedation Rate (ipm) (%) (mmHg) Status Level (bpm) 14:51:22 72 24 95 0 140/86(109) NSR 0 (11) 10(A) , No pain 14:55:21 79 27 94 25 133/86(109) NSR 0 (11) 10(A) , No pain 14:59:23 75 24 95 18.7 138/83(101) NSR 0 (11) 10(A) , No pain 15:03:23 71 21 95 32.9 121/83(99) NSR 0 (11) 10(A) , No pain 15:08:05 79 19 97 35.2 119/76(96) NSR 0 (11) 10(A) , No pain 15:12:05 78 27 95 40.4 130/82(104) NSR 0 (11) 9(A) , No pain 15:16:04 78 20 94 35.9 135/87(103) NSR 0 (11) 9(A) , No pain 15:20:06 79 22 95 35.2 131/83(103) NSR 0 (11) 9(A) , No pain 15:24:10 82 19 95 0.7 129/79(94) NSR 0 (11) 9(A) , No pain 15:28:14 82 18 96 0.7 132/82(97) NSR 0 (11) 10(A) , No pain 15:32:17 74 20 96 38.1 139/82(104) NSR 0 (11) 10(A) , No pain Medications Time Medication Route Dose Verified Delivered Reason Notes Effectiveness by by 14:56:58 Oxygen etCO2 2 Enrique Reveles used for Nasal l/min [facility] Richard Carroll mooner cannula 14:57:06 Lidocaine 2% added 20ml Enrique Nunez for local to vial [facility] anesthetic field MD PITTS 14:57:14 Heparin Flush added 2 Enrique Nunez used for Bag to bags [facility] procedure (1000units/500ml field MD PITTS NS) 14:57:22 0.9% NaCl I.V. 100 Enrique Reveles Per physician ml/hr [facility] Richard Carroll RN, MD 14:57:46 Versed I.V. 2 mg Enrique Reveles for sedation [facility] Richard Carroll RN, MD 14:57:51 Fentanyl I.V. 50 Enrique Reveles for sedation mcg [facility] Richard Carroll RN, MD 15:05:29 Versed I.V. 2 mg Enrique Reveles for sedation [facility] Richard Carroll RN, MD 15:05:33 Fentanyl I.V. 50 Enrique Reveles for sedation mcg [facility] Richard Carroll RN, MD 15:16:44 Heparin Bolus I.V. 5000 Enrique Reveles for verif ied units [facility] Richard Carroll RN anticoagulation with dr MD bradshaw 15:22:34 Integrilin I.V. 11.3 Enrique Reveles for waste d (Bolus 2mg/ml) ml [facility] Richard Carroll RN antiplatelet 8.7 ml therapy of vial 15:35:02 Plavix P.O. 600 [address] for mg [facility] Richard Carroll RN antiplatelet therapy Procedure Log Time Note 14:28:03 Indication : Chest pain 14:28:07 Diagnostic Cath Status : Urgent 14:29:29 Patient Height : 72.83 inches 14:29:34 Patient Weight : 268.97 lbs 14:29:46 Admit Source: Other 14:29:48 Arrival Date: 01/21/2020 12:00:00 AM 14:29:49 Insurance Payor : Private health insurance 14:30:58 Lab Result : eGFR NONAFRICAN 90 ml/min 14:30:58 Lab Result : Hemoglobin 14.9 g/dl 14:30:58 Lab Result : Troponin l 0.118 ng/ml 14:30:58 Lab Result : BUN 16 mg/dl 14:30:58 Lab Result : Creatinine 0.9 mg/dl 14:31:20 Procedure Status Urgent Heart Cath (IP). 14:31:23 Anushka Carroll RN sent for patient. Start room use. 14:31:24 Time tracking: Regular hours (M-F 7:00 - 5:00) 14:31:29 Plan of Care:Hemodynamics will remain stable., Cardiac rhythm will remain stable., Comfort level will be maintained., Respiratory function will remain adequate., Patient/ family verbilizes understanding of procedure., Procedure tolerated without complication., Recovers from procedure without complications.. 14:50:31 Vital chart was started 14:50:47 Patient received from Med II to CCL 2 Alert and oriented. Tansferred to table in Supine position. 14:50:49 Signed procedure consent form obtained from patient. 14:50:50 Warm blankets applied, and delphine hugger turned on for patient comfort. 14:50:50 Correct patient and procedure confirmed by team. 14:50:51 ECG and BP/O2 sat monitors applied to patient. 14:51:25 Baseline sample Acquired. 14:51:29 Rhythm: sinus rhythm 14:51:31 Full Disclosure recording started 14:51:36 H&P Date Dictated: 01/21/2020 New H&P dictated by physician.. 14:51:38 Pre-procedure instructions explained to patient. 14:51:42 Pre-op teaching completed and patient verbalized understanding. 14:51:43 Family in patients room. 14:51:45 Patient NPO since Midnight. 14:51:46 Is the patient allergic to Iodine/contrast media? No. 14:51:47 Was the patient premedicated? Yes 14:51:49 Is patient on blood thinner?No 14:51:50 Patient diabetic? Yes. 14:51:52 If diabetic: On Metformin? Yes 14:52:41 Previous problem with sedation/anesthesia? No ? 14:52:43 Snore? Yes 14:52:43 Sleep apnea? No 14:52:44 Deviated septum? No 14:52:45 Opens mouth fully? Yes 14:52:45 Sticks out tongue? Yes 14:52:47 Airway obstruction? No ? 14:52:50 Dentures? No ? 14:52:53 Pre procedure: right dorsailis pedis pulse 2+ Normal; easily identifiable; not easily obliterated 14:52:56 Pre procedure: left dorsailis pedis pulse 2+ Normal; easily identifiable; not easily obliterated 14:53:00 Patient pain scale 0/10 ?. 14:53:13 IV patent on arrival in left forearm with 0.9% NaCl at [facility]. 14:53:15 Lab results completed and on chart. 14:53:20 Right Radial & Right Groin area was prepped with chlora-prep and draped in sterile fashion 14:53:21 Alarms reviewed by R. N. 14:53:22 Sharps counted by scrub and verified by Rochelle 14:53:23 Physician arrived 14:53:24 --------ALL STOP TIME OUT------ 14:53:24 Final Timeout: patient, procedure, and site verified with staff and physician. All members of the team are in agreement. 14:53:26 Right Radial & Right Groin site verified by team. 14:53:28 Fire Safety Assessment: A--An alcohol-based skin anteseptic being used preoperatively., C--Open oxygen or nitrous oxide is being used., D--An ESU, laser, or fiber-optic light is being used. 14:53:32 Physical assessment completed. ASA score P 2 - A patient with mild systemic disease as per Enrique Sevilla MD. 14:54:49 IV Extension Set opened to sterile field. 14:55:26 1) 90+ Normal kidney functon but urine findings or structural abnormalities or genetic trait point to kidney disease. 14:55:31 Maximum allowable contrast dose (3.7 X eGFR X 0.75)250 ml. 14:55:35 Sedation plan: IV Moderate Sedation Medication:Versed, Fentanyl 14:55:54 Use device set Femoral Dx 14:55:59 ACIST Syringe (11803) opened to sterile field. 14:55:59 Bag Decanter (2002S) opened to sterile field. 14:55:59 Medline Cath Pack ([id number]) opened to sterile field. 14:56:00 ACIST Hand Control (57815) opened to sterile field. 14:56:01 ACIST Manifold (45786) opened to sterile field. 14:56:01 DIAGNOSTIC Multipack 5Fr catheter set (GA0358) opened to sterile field. 14:56:02 Tegaderm 4 x 4 (1626W) opened to sterile field. 14:56:03 SHEATH 5FR [place] (DDX603) opened to sterile field. 14:56:03 EMERALD Guide Wire (253-340) opened to sterile field. 14:56:58 Oxygen 2 l/min etCO2 Nasal cannula was administered by Anushka Carroll RN; used for procedure; Verbal order read back and verified. 14:57:06 Lidocaine 2% 20ml vial added to field was administered by Enrique Sevilla MD; for local anesthetic; Verbal order read back and verified. 14:57:14 Heparin Flush Bag (1000units/500ml NS) 2 bags added to field was administered by Enrique Sevilla MD; used for procedure; Verbal order read back and verified. 14:57:22 0.9% NaCl 100 ml/hr I.V. was administered by Anushka Carroll RN; Per physician; Verbal order read back and verified. 14:57:46 Versed 2 mg I.V. was administered by Anushka Carroll RN; for sedation; Verbal order read back and verified. 14:57:46 Zero performed for pressure channel P1 14:57:51 Fentanyl 50 mcg I.V. was administered by Anushka Carroll RN; for sedation; Verbal order read back and verified. 15:05:29 Versed 2 mg I.V. was administered by Anushka Carroll RN; for sedation; Verbal order read back and verified. 15:05:33 Fentanyl 50 mcg I.V. was administered by Anushka Carroll RN; for sedation; Verbal order read back and verified. 15:12:17 Procedure started. 15:12:26 Local anesthetic to right femoral artery with Lidocaine 2% by Enrique Sevilla MD.INITIAL ACCESS ONLY 15:12:34 A 5 Fr sheath was inserted into the Right Femoral artery 15:12:43 Zero performed for pressure channel P1 15:13:27 A MULTIPACK JL 4.0 5Fr catheter was advanced over the wire and used for Left Coronary Angiography. 15:14:25 LCA angiography performed. 15:14:27 Injector settings: Ml/sec: 3, Volume: 6, 15:15:42 Catheter removed. 15:16:01 A MULTIPACK 3DRC 5Fr catheter was advanced over the wire and used for Right Coronary Angiography. 15:16:20 RCA angiography performed. 15:16:22 Injector settings: Ml/sec: 3, Volume: 6, 15:16:30 Catheter removed. 15:16:44 Heparin Bolus 5000 units I.V. was administered by Anushka Carroll RN; for anticoagulation; verified with dr bradshaw Verbal order read back and verified. 15:17:13 A MULTIPACK Pigtail 5 Fr catheter was advanced over the wire and used for LV Angiography. 15:17:29 Injector settings: Ml/sec: 5, Volume: 15, 15:17:33 LV gram done using GUPTA 15:18:31 EF : 55 % 15:18:32 LV hemodynamics recorded. 15:18:35 Catheter removed. 15:18:37 Proceeding to intervention. 15:19:29 INFLATOR Merit BasixCompak (WS7201) opened to sterile field. 15:19:30 SHEATH 6FR [place] (BEX362) opened to sterile field. 15:19:46 GUIDE 6FR XBLAD 3.5 catheter ([id number]) opened to sterile field. 15:19:47 WHISPER 300cm guide wire ([id number]) opened to sterile field. 15:20:06 Sheath upsized to a 6 Fr Short. 15:20:12 ACC Pre-intervention EDWARD Flow is 3. 15:20:23 6 Fr xblad3.5 guide catheter was inserted over the wire 15:22:34 Integrilin (Bolus 2mg/ml) 11.3 ml I.V. was administered by Anushka Carroll RN; for antiplatelet therapy; wasted 8.7 ml of vial Verbal order read back and verified. 15:23:03 Pre PCI Site: [place] pLAD has 90% stenosis. 15:23:12 [id number] wire advanced. 15:25:17 Wire advanced across lesion. 15:29:36 Place stent Inflation Number: 1 A TOM RX 3.5 x 15 stent ([id number]) was prepped and advanced across the Prox LAD . The stent was deployed at 16 [place] for 0:31 (min:sec) . 15:30:15 ACC Post-intervention EDWARD Flow is 3. 15:30:19 Stent catheter was removed intact over wire. 15:30:40 Wire removed. 15:30:42 Guide catheter removed. 15:30:45 EXOSEAL 6Fr (EX600) opened to sterile field. 15:31:16 Sheath removed intact; hemostasis achieved with Exoseal to the Right Femoral artery. 15:31:21 Procedure ended.(Physican Out) 15:31:28 Contrast amount:Isovue 300 94ml. 15:32:06 Maximum allowable dose exceeded? No. 15:32:08 Sharps counted by scrub and verified by R.N. 15:32:16 Fluoroscopy time 04.90 minutes. 15:32:23 Flurop Dose total: 1076 15:32:23 Fluoroscopy dose: 1076 mGy 15:32:32 Dose Area Product 80352 mGy/cm. 15:32:38 Post-op/insertion site Right Femoral artery dressed using a 4 x 4 and Tegaderm. 15:32:44 Post-procedure physical assessment completed. ASA score P 2 - A patient with mild systemic disease as per Enrique Sevilla MD. 15:32:49 Post procedure rhythm: unchanged. 15:32:55 Estimated blood loss: 10 ml 15:33:54 Post procedure instruction explained to patient.Patient verbalizes understanding. 15:33:55 Patient needs reinforcement of post procedure teaching. 15:34:25 Procedure type changed to Cath procedure, Diagnostic procedure, LHC, LHC w/Coronaries, Sedation Charges, Moderate Sedation up to 30 minutes, PCI procedure, Coronary Stent, Coronary Stent Initial, Hemochron ACT Test 15:34:29 Procedure and supply charges have been captured, reviewed, submitted and are correct. 15:35:02 Plavix 600 mg P.O. was administered by Anushka Carroll RN; for antiplatelet therapy; Verbal order read back and verified. 15:35:27 ACT drawn and resulted at 186 seconds. (normal therapeutic range 180-240 seconds). 15:35:32 Procedure Complication : No complications 15:35:35 Vital chart was stopped 15:35:39 [facility] Findings: MVD- PCI performed (see procedure note) 15:35:45 See physician's report for complete and final results. 15:35:59 Report given to [facility]. 15:36:37 Patient transfered to [facility] II with Bed. 15:36:45 Procedure ended. 15:36:45 Full Disclosure recording stopped 15:37:06 ACC-PCI Only Patient was given prescriptions, or instructed by Enrique Sevilla MD to start/continue the following medications upon discharge: Plavix 15:37:08 End room use (Document Last) Intervention Summary Intervention Notes Time ActionType Lesion and Equipment Used Action# Pressure Duration Attributes 15:29:36 Place stent Prox LAD TOM RX 3.5 x 1 16 00:31 15 stent ([id number]) Device Usage Item Name Manufacture Quantity Catalog Hospital Part [facility] Lot# / Number Charge Number Stock Stock Serial# Code IV Extension Hospira 1 98749-01 261185 92579 544900 5 Set ACIST Syringe Acist 1 85419 731841 543640 234214 20 (54391) Medical Systems Inc Bag Decanter Microtek 1 2001S 902689 66170 405023 5 (2001S) Medical Inc. Medline Cath Medline 1 [id number] 657361 75850 042606 5 Pack ([id number]) ACIST Hand Acist 1 28784 424863 080855 827146 5 Control Medical (36721) Systems Inc ACIST Manifold Acist 1 80412 203125 026062 981427 5 (38645) Medical Systems Inc DIAGNOSTIC Cardinal 1 NO0064 037049 97895 966206 30 Multipack 5Fr Health catheter set (IQ7380) Tegaderm 4 x 4 3M 1 1626W 595715 619691 679430 5 (1626W) SHEATH 5FR Terumo 1 SQV253 149125 758516 388836 5 [place] (OMA766) EMERALD Guide Cardinal 1 502-455 877319 205927 446929 5 Wire (502-455) Health MULTIPACK JL Cardinal 1 090912 5 4.0 5Fr Health catheter MULTIPACK 3DRC Cardinal 1 592423 5 5Fr catheter Health MULTIPACK Cardinal 1 742637 5 Pigtail 5 Fr Health catheter INFLATOR Merit Merit 1 LB1344 100921 385055 078405 15 BasixBeatSwitch Medical (ZO4490) SHEATH 6FR Terumo 1 HGY100 861266 304615 733951 40 [place] (QYF969) GUIDE 6FR Cardinal 1 00518584 996369 068116 440792 10 XBLAD 3.5 Health catheter (27544124) WHISPER 300cm Grace 1 [id number] 879792 398433 032088 5 guide wire Vascular (4708533OE) TOM RX 3.5 x Medtronic 1 [id number] 477379 4421136 057015 5 [id number] 15 stent ([id number]) EXOSEAL 6Fr Cardinal 1 EX600 005063 468407 260318 10 (EX600) Health Signature Audit [place] Stage Time Signature Unsigned Intra-Procedure 01/21/2020 Vivi 3:40:11 PM Shital RT(R) (CV) Intra-Procedure 01/21/2020 Anushka Carroll RN 3:40:48 PM Intra-Procedure 01/21/[address] 3:41:14 PM Richard MD Signatures Performing Physician : Signature : Enrique Roel MD Date : Time : Monitor : Mariia Rojas Signature : RT Date : Time : Nurse : Buffie Carroll RN Signature : Date : Time : Monitor : Vivi Signature : Nannemann RT Date : Time : [address] [facility] [place] [address]
[~2020-01-20 09:33] MED LIST changes: +LISINOPRIL2.5 MG PO
[2020-01-20 10:00] VITALS: BP 130/83
[2020-01-20 10:06] LABS: BASOPHILS 0.3 % (0-2); EOSINOPHILS 2.5 % (0-7); HEMATOCRIT 48.2 % (42.0-54.0); HEMOGLOBIN 16.5 g/dL (13.5-17.5); IMMATURE GRANULOCYTES 0.3 % (0-5); LYMPHOCYTES 26.6 % (15-50); MCH 29.5 pg (26.0-34.0); MCHC 34.2 g/dL (31.0-37.0); MCV 86.1 fL (80.0-100.0); MEAN PLATELET VOLUME 10.3 fL (7.4-10.4); MONOCYTES 5.3 % (2-11); PLATELET COUNT 159 10x3/uL (130-400); RDW 12.3 % (11.5-14.5); WBC 6.8 10x3/uL (4.8-10.8)
[2020-01-20 10:21] LABS: APTT 29.6 SECONDS (22.8-39.4); CALC OSMOLALITY 285 mosm/kg (275-300); CALCIUM 8.8 mg/dL (8.5-10.1); CARBON DIOXIDE 25.9 mmol/L (21.0-32.0); CHLORIDE - SERUM 102 mmol/L (98-107); CREATININE - SERUM 1.1 mg/dL (0.6-1.3); INR 0.91 (0.85-1.17); POTASSIUM - SERUM 4.4 mmol/L (3.5-5.1); PROTIME 12.2 SECONDS (11.6-15.0); SODIUM 135 mmol/L (136-145); UREA NITROGEN 14 mg/dL (7-18); eGFR NON AFRICAN AMERICAN 73 mL/min (90-120)
[2020-01-20 10:31] LABS: GLUCOSE 361 mg/dL (74-106)
[2020-01-20 10:36] LABS: ALBUMIN 3.6 g/dL (3.4-5.0); ALKALINE PHOSPHATASE 120 U/L (30-120); ALT (SGPT) 33 U/L (10-68); BILIRUBIN - TOTAL 0.72 mg/dL (0.2-1.3); CKMB 0.8 U/L (0.0-3.6); CREATINE KINASE 78 UL (21-232); MAGNESIUM - SERUM 1.6 mg/dL (1.8-2.4); PROTEIN - SERUM 7.4 g/dL (6.4-8.2)
[2020-01-20 10:41] LABS: TROPONIN-I < 0.017 ng/mL (0.000-0.060)
[2020-01-20 11:20] VITALS: BP 142/88
[2020-01-20 15:31] VITALS: BP 137/89
[2020-01-20 17:08] VITALS: BP 126/75
--- NOTE | 2020-01-20 17:16 | NUR ---
CRITICAL VALUE TROP 0.118. JACKY BENITEZ WITH CARDIOLOGY NOTIFIED. NEW ORDERS FOR NPO AFTER MIDNIGHT AND CARDIAC CATH IN AM.
[2020-01-20 20:00] VITALS: BP 113/68
[2020-01-21] VITALS: BP 112/68
[2020-01-21 04:00] VITALS: BP 107/68
[2020-01-21 05:50] LABS: BASOPHILS 0.2 % (0-2); EOSINOPHILS 2.6 % (0-7); HEMATOCRIT 43.9 % (42.0-54.0); HEMOGLOBIN 14.9 g/dL (13.5-17.5); IMMATURE GRANULOCYTES 0.2 % (0-5); LYMPHOCYTES 26.3 % (15-50); MCH 28.9 pg (26.0-34.0); MCHC 33.9 g/dL (31.0-37.0); MCV 85.2 fL (80.0-100.0); MEAN PLATELET VOLUME 9.9 fL (7.4-10.4); NEUTROPHILS 63.7 % (40-80); PLATELET COUNT 149 10x3/uL (130-400); RBC 5.15 10x6/uL (4.20-6.10); RDW 12.3 % (11.5-14.5)
[2020-01-21 06:14] LABS: ALBUMIN 3.2 g/dL (3.4-5.0); ALKALINE PHOSPHATASE 100 U/L (30-120); ALT (SGPT) 28 U/L (10-68); CALCIUM 8.4 mg/dL (8.5-10.1); CARBON DIOXIDE 31.1 mmol/L (21.0-32.0); CHLORIDE - SERUM 104 mmol/L (98-107); CREATININE - SERUM 0.9 mg/dL (0.6-1.3); MAGNESIUM - SERUM 1.6 mg/dL (1.8-2.4); PROTEIN - SERUM 6.5 g/dL (6.4-8.2); SODIUM 138 mmol/L (136-145); UREA NITROGEN 16 mg/dL (7-18); eGFR NON AFRICAN AMERICAN > 90 mL/min (90-120)
[2020-01-21 06:18] LABS: CALC OSMOLALITY 281 mosm/kg (275-300); GLUCOSE 193 mg/dL (74-106)
[2020-01-21 06:27] LABS: WBC 8.7 10x3/uL (4.8-10.8)
[2020-01-21 07:29] VITALS: BP 107/68; BMI 35.8
--- NOTE | 2020-01-21 09:30 | NUR ---
CONSENTS SIGNED FOR [facility]. WILL CONT. PLAN OF CARE.
[2020-01-21 09:36] VITALS: BP 117/74
[2020-01-21 09:37] LABS: CHOL - HDL RATIO 4.7 ratio (2.3-4.9); LDL-HDL RATIO 2.7 ratio (1.5-3.5)
[2020-01-21 12:46] VITALS: BMI 35.7
[2020-01-21 13:39] VITALS: BP 117/71
[2020-01-21 14:39] VITALS: Ht 185.4 cm; Wt 122.9 kg
--- NOTE | 2020-01-21 15:00 | NUR ---
PRE-OPS GIVEN. TO CORRESPONDENCE SECTION SUPERVISOR BY BED.
--- NOTE | 2020-01-21 16:02 | NUR ---
BACK FROM ACETYLENE OPERATOR. VS WNL. RIGHT GROIN STABLE WITHOUT BLEEDING OR HEMATOMA NOTED. WILL MONITOR.
[2020-01-21 20:00] VITALS: BP 123/69
[2020-01-22] VITALS: BP 114/69
[2020-01-22 04:00] VITALS: BP 119/63
[2020-01-22 06:54] LABS: BASOPHILS 0.4 % (0-2); EOSINOPHILS 2.7 % (0-7); HEMATOCRIT 44.3 % (42.0-54.0); HEMOGLOBIN 15.2 g/dL (13.5-17.5); IMMATURE GRANULOCYTES 0.1 % (0-5); LYMPHOCYTES 26.4 % (15-50); MCH 29.3 pg (26.0-34.0); MCHC 34.3 g/dL (31.0-37.0); MCV 85.4 fL (80.0-100.0); MEAN PLATELET VOLUME 9.7 fL (7.4-10.4); NEUTROPHILS 62.4 % (40-80); PLATELET COUNT 146 10x3/uL (130-400); RBC 5.19 10x6/uL (4.20-6.10); RDW 12.3 % (11.5-14.5); WBC 6.8 10x3/uL (4.8-10.8)
[2020-01-22 07:58] LABS: ALBUMIN 3.3 g/dL (3.4-5.0); ALKALINE PHOSPHATASE 108 U/L (30-120); ALT (SGPT) 27 U/L (10-68); CALC OSMOLALITY 279 mosm/kg (275-300); CALCIUM 8.2 mg/dL (8.5-10.1); CARBON DIOXIDE 28.3 mmol/L (21.0-32.0); CHLORIDE - SERUM 104 mmol/L (98-107); CREATININE - SERUM 0.9 mg/dL (0.6-1.3); GLUCOSE 204 mg/dL (74-106); MAGNESIUM - SERUM 1.7 mg/dL (1.8-2.4); POTASSIUM - SERUM 4.2 mmol/L (3.5-5.1); PROTEIN - SERUM 6.9 g/dL (6.4-8.2); SODIUM 137 mmol/L (136-145); UREA NITROGEN 13 mg/dL (7-18); eGFR NON AFRICAN AMERICAN > 90 mL/min (90-120)
--- NOTE | 2020-01-22 08:18 | OP ---
PATIENT NAME: STIVEN FRANCISCO MEDICAL RECORD: [id number] :61 LOCATION:D.M2 D.2116 ADMISSION DATE:01/20/20 SURGEON: ELIZABETH PRICE MD DATE OF OPERATION: 01/21/2020 PROCEDURE: Left heart catheterization, selective coronary angiography, plus PDA stenting on the right, right femoral artery approach. CATHETERS: A 5-Burundian sheath, 5/4 left and right Waqar 5/4 pig. The procedure was tolerated. We proceeded to PTCA stenting to the LAD. FINDINGS: Left ventriculography in 30-degree GUPTA view: Normal wall motion. Normal systolic function. CORONARY ANATOMY: LEFT MAIN: Left main is free of disease. LAD: Has in-stent restenosis better than 90%. Obviously infarct related artery. CIRCUMFLEX: Gives rise to large OM. This area of previous stenting is widely patent. RIGHT CORONARY ARTERY: Widely patent. PLAN: Intervention to LAD momentarily. DESCRIPTION OF PROCEDURE: A 5-Burundian sheath was exchanged for a 6-Burundian sheath. An XB LAD guiding catheter provided excellent guiding catheter support, followed by 300 cm Whisper wire, it was placed across tightly occluded LAD down distal portion of the vessel. Stent deployed was a 3.5 x 15 mm Anand up to 16 atmosphere for 45 seconds. Final angiography showed excellent resolution of 90% stenosis, no significant residual. EDWARD flow was 3 through the procedure. Heparin and Integrilin were used during this case. Plavix was loaded in the lab. Sheath closed with ExoSeal device. TRANSINT:[id number] Voice Confirmation ID: [id number] DOCUMENT ID: [id number] ELIZABETH PRICE MD at 0818 CC: [id number] DICTATION DATE: 01/21/20 1550 SENIOR HR BUSINESS PARTNER: 01/22/20 0158 ADM IN [facility] [address] [place] [address]
[2020-01-22 10:20] VITALS: BP 128/78
[2020-01-22] MEDS ORDERED: PLAVIX75 MG PO (10:53)
--- NOTE | 2020-01-22 11:29 | NUR ---
IV AND TELEMETRY DCD. DC PLANS GIVEN. UNDERSTANDING VOICED. ESCORTED TO CAR BY W/C.
--- NOTE | 2020-01-23 07:09 | MORECARE ---
CASE MANAGEMENT DISCHARGE SUMMARY PATIENT: STIVEN FRANCISCO UNIT: [id number] ADM DATE: 01/20/20 AGE: 54 : 61 SEX: M ROOM/BED: D.2116 AUTHOR: TIMOTHY KNOWLES PHYSICIAN: REFERRING PHYSICIAN: SHARON MENDEZ DO DATE OF SERVICE: 01/23/20 Discharge Plan Patient Name: STIVEN FRANCISCO [facility] [facility] 1965 Planned Disposition: Anticipated Discharge Date: Discharge Date: 01/22/2020 Expected LOS: 0 Initial Reviewer: [email or web address] Initial Review Date: 01/23/2020 Generated: 01/23/20 8:09 am Patient Name: STIVEN FRANCISCO Page [id number] at 0709 All edits/amendments must be made on the electronic document DICTATION DATE: 01/23/20708 AUTOMOTIVE GENERAL SALES MANAGER: TORI 01/23/20 07 RPT#: [id number] DC DATE:01/22/20 STATUS: DIS IN [facility] [address] [place] [address] END OF REPORT
== END 2020-01-22 11:30 | disposition home or self-care (01) ==
LOC: D.ER 09:33 → D.M2 15:57 → OBSVTIME 15:58 → D.M2 01-22 11:30
PROVIDERS: Family Medicine; Internal Medicine Interventional Cardiology; ADMIT Family Medicine; ATTEND Family Medicine
DX: I25.110 Atherosclerotic heart disease of native coronary artery with unstable angina pectoris (principal); R07.9 Chest pain, unspecified; I25.2 Old myocardial infarction; E11.9 Type 2 diabetes mellitus without complications; Z79.84 Long term (current) use of oral hypoglycemic drugs; E87.1 Hypo-osmolality and hyponatremia; E83.42 Hypomagnesemia; I21.A1 Myocardial infarction type 2
CPT/HCPCS: 93458; C9600